=== PATIENT | male | born 1955 | race Caucasian/White ===

== ENCOUNTER 2022-04-18 10:42 | Outpatient (CLI) | payer MEDICARE, BC, SELFPAY ==
--- NOTE | 2022-04-18 | USCV_ITS ---
Saul Sotomayor Age: 66 Gender: M : 1955 Exam Date: 04/18/2022 12:00 Ordering Phys: Louie Landaverde DO Technologist: Exam Location: [facility] – [place] Indication: lv hypertrophy BP: 157 / 82 HR: 53 Rhythm: Sinus Technical Quality: Adequate MEASUREMENTS (Male / Female) Normal Values 2D ECHO LV Diastolic Diameter PLAX 3.8 cm 4.2 - 5.9 / 3.9 - 5.3 cm LV Systolic Diameter PLAX 3.0 cm IVS Diastolic Thickness 1.8 cm 0.6 - 1.0 / 0.6 - 0.9 cm IVS Systolic Thickness 2.1 cm LVPW Diastolic Thickness 1.6 cm 0.6 - 1.0 / 0.6 - 0.9 cm LVPW Systolic Thickness 1.6 cm LVOT Diameter 2.1 cm LV Ejection Fraction 2D Teich 24.2 % LA Diameter 3.6 cm Aorta at Sinotubular Diameter 3.0 cm IVC Diameter 1.7 cm M-MODE Aortic Annulus Diameter 4.1 cm LA Ao Ratio MM 0.9 MV E Point Septal Separation 0.5 cm DOPPLER AV Peak Velocity 172.0 cm/s LVOT Peak Velocity 125.0 cm/s AV Area Cont Eq vti 3.3 cm squared AV Area Cont Eq pk 2.6 cm squared MV Area PHT 2.0 cm squared Mitral E to A Ratio 0.6 MV E' Velocity 37.0 cm/s Mitral E to MV E' Ratio 9.4 Mitral E to LV E' Lateral Ratio 8.0 Mitral E to LV E' Septal Ratio 11.5 TR Peak Velocity 177.0 cm/s TR Peak Gradient 12.5 mmHg TV Peak E Velocity 78.0 cm/s Right Atrial Pressure 3.0 mmHg Pulmonary Artery Systolic Pressu 15.5 mmHg RV Acceleration Time 0.1 s FINDINGS Left Ventricle Moderate left ventricular hypertrophy. Normal left ventricular size and systolic function, EF 65%.Grade I/IV diastolic dysfunction (abnormal relaxation filling pattern), normal to mildly elevated filling pressures. Right Ventricle The right ventricle is normal in size and function. Right Atrium The right atrium is normal in size. Left Atrium The left atrium is normal in size. Mitral Valve Thickened mitral valve. Mild mitral annular calcification. Aortic Valve Trace aortic valve regurgitation. Tricuspid Valve No gross abnormalities noted Pulmonic Valve No gross abnormalities noted Pericardium Normal pericardium without effusion. Aorta Normal ascending aorta dimension. IVC Inferior vena cava not visualized. CONCLUSIONS Moderate left ventricular hypertrophy. Normal left ventricular size and systolic function, EF 65%.Grade I/IV diastolic dysfunction (abnormal relaxation filling pattern), normal to mildly elevated filling pressures. Thickened mitral valve. Mild mitral annular calcification. Trace aortic valve regurgitation. There is no pericardial effusion. There are no intracardiac masses. No similar previous studies are available for comparison Dr Samantha Quinn MD FAC (Electronically Signed) Final Date: 21 April 2022 16:39 S
--- NOTE | 2022-04-18 11:20 | USCV_ITS ---
Saul Sotomayor Age: 66 Gender: M : 1955 Exam Date: 04/18/2022 11:34 Ordering Phys: Louie Landaverde DO Technologist: BRISE[place] [facility] [place]ication: OLD CVA Risk Factors: Previous Vascular Surgery: Right Brachial BP: / Left Brachial BP: / Right Left Velocity (cm/s) Spectral Plaque Velocity (cm/s) Spectral Plaque Syst/Diast Broadening Syst/Diast Broadening 59.30/ 11.20 Prox CCA 48.60 / 11.20 65.70/ 15.50 Mid CCA 80.80 / 17.90 97.90/ 23.30 Distal CCA 59.00 / 17.10 45.40/ 10.90 Prox ICA 59.00 / 12.40 23.30/ 4.90 Mid ICA 47.40 / 17.10 79.30/ 20.80 Distal ICA 49.70 / 21.00 79.20 ECA 92.40 0.81 ICA/CCA 0.73 Vertebral 58.80/ 15.40 cm/s 38.80/ 14.00 cm/s Subclavian 129.4 135.4 0 0 CONCLUSIONS Right ICA stenosis <50%. Mild atheromatous plaque right carotid bulb/ICA. Left ICA stenosis <50%. Mild atheromatous plaque left carotid bulb/ICA. Normal antegrade Doppler flow noted in the right vertebral artery. Normal antegrade Doppler flow noted in the left vertebral artery. Calbe Mason MD (Electronically Signed) Final Date: 18 April 2022 12:34 S
== END 2022-04-18 10:43 | disposition home or self-care (01) ==
PROVIDERS: PCP Internal Medicine; Visit Provider Internal Medicine
DX: I69.322 Dysarthria following cerebral infarction (principal)
CPT/HCPCS: 93306; 93880